=== PATIENT | female | born 1940 | race Caucasian/White ===

== ENCOUNTER 2019-12-13 06:26 | Day surgery (SDC) | payer OTHER, MEDICARE ==
[2019-12-06 15:27] LABS: Absolute Lymphocytes (CBC) 2.8 K/uL (0.7-4.9); Basophils % 0.9 % (0-1.3); Lymphocytes % 38.8 % (15.3-44.8); MPV 8.4 fL (7.6-11.3); RBC Red Blood Cell Count 4.45 M/uL (3.86-4.86)
[2019-12-06 15:31] LABS: Protime INR 0.97
[2019-12-13] MEDS ORDERED: Ringers Lactate 1,000 ML IV ONE (06:49)
[2019-12-13] MEDS ORDERED: CEFAZOLIN/SWI 2gm 2 GM/20 ML SYR ONE (06:49)
[2019-12-13] MEDS ORDERED: FENTANYL CITR 100 MCG/2 ML ONE (07:15)
[2019-12-13] MEDS ORDERED: LIDOCAINE 1% W/EPI 1:100,000 MDV 20 ML VIAL ONE ×2 (07:15→09:05)
[2019-12-13] MEDS ORDERED: propofoL 200 MG/20 ML VIAL IV ONE (07:16)
[2019-12-13] MEDS ORDERED: LIDOCAINE 2% MPF 5 ML VIAL ONE (07:17)
[2019-12-13] MEDS ORDERED: ONDANSETRON 4 MG/2 ML VIAL ONE (07:17)
[2019-12-13 09:57] VITALS: BP 130/62; TEMP 97.5; O2SAT 96
[2019-12-13] MEDS ORDERED: NORCO 5/325mg (4 TAB for ER Dispense) PO ONE (10:15)
[2019-12-13] MEDS ORDERED: HYDROCODONE/APAP 5/325 MG TAB ONE (10:17)
--- NOTE | 2019-12-13 19:55 | OP ---
Date of Procedure: 12/13/2019 Surgeon: Althea William MD Preoperative Diagnoses: section scar mass and pain. Right labial cyst increasing in size. Postoperative Diagnoses: section scar mass and pain. Right labial cyst increasing in size. Procedures Performed: section scar mass excision and revision of the scar, right labial exc ision of the mass like a sebaceous cyst. Anesthesia: General. Estimated Blood Loss: Minimal. Complications: None. Drains: None. Specimens: Right labial sebaceous cyst and scar mass. Findings: Same as the postoperative diagnosis. Description Of Procedure: After informed consent was verified, the patient was taken back to OR, yeison reymundo in a supine fashion on the operating table. Ancef 2 g was given preop. The patient was placed i n a dorsal lithotomy position. Abdomen, vulva, vagina, and perineum were prepped and draped in a sherwin rile fashion. There was no Naik catheter used. First, the scar mass was identified and p alpated. The nodular area that was bothersome to the patient was mapped out and the skin incision ma rked out in a transverse fashion about a 7 cm incision was made in elliptical fashion with a scalpel after injecting 1% lidocaine with epinephrine 5 cc. Then, the entire scar was excised with the help of the Bovie. After palpating the base, there was all amount left on the right lateral aspect and th is was excised again. Then, once all the tissues underneath were soft and only fat was seen and all the superior margins were excised, this was handed off for permanent pathology. Hemostasis secured w ith the Bovie closure, interrupted 3-0 Vicryl in the subcutaneous plane and subcuticular 4-0 Vicryl r unning suture. A 1% lidocaine with in 10 mL was injected in this area after the procedure completed on the top. Coming down to the bottom, elliptical incision made on the right labia of the labia majora. Elliptic al incision made in the vertical plane, injected with lidocaine 5 cc. Then, a scalpel used to marcos t he edges out to incise the edges. Then, the entire mass was excised with the help of the cautery. T his was completely excised with the skin. No underlying tissues needed to be removed. After hemosta sis was secured with the Bovie, 3 interrupted 3-0 Vicryl in the subcutaneous plane and subcuticular c losure with 4-0 Vicryl, injected with another 5 cc. Instrument, needle, and sponge counts were corre ct at the end of the case. The patient tolerated the procedure well. She was awakened from anesthes ia in the OR, recovered from anesthesia in the OR and taken to PACU in stable condition. She will fo llow up with me in 1 week. ABELARDO/MILI Voice ID: [id number] Report ID: [id number]
== END 2019-12-13 10:45 | disposition home or self-care (01) ==
LOC: OR 06:26
PROVIDERS: ATTEND Obstetrics & Gynecology
PROC: 0UBM0ZZ Excision of Vulva, Open Approach (ICD-10-PCS; 2019-12-13)
PROC: 0HB7XZZ Excision of Abdomen Skin, External Approach (ICD-10-PCS; principal; 2019-12-13 07:30)
DX: L90.5 Scar conditions and fibrosis of skin (principal); N90.7 Vulvar cyst; E03.9 Hypothyroidism, unspecified; J45.909 Unspecified asthma, uncomplicated; M85.80 Other specified disorders of bone density and structure, unspecified site; Z80.3 Family history of malignant neoplasm of breast; Z83.3 Family history of diabetes mellitus; Z82.49 Family history of ischemic heart disease and other diseases of the circulatory system
CPT/HCPCS: 85025; 36415; 85610; 88304 ×2; 85730; 11406; 11422; J2704; J3010; J0690; J7120; J2405